=== PATIENT | female | born 1995 | race Caucasian/White ===

== ENCOUNTER 2025-04-24 18:34 | Emergency (ER) | payer OTHER ==
[2025-04-24 18:55] VITALS: BP 116/72; PULSE 104; RESP 18; TEMP 98.4; BMI 43.6
[2025-04-24 19:48] LABS: EPI CELLS >36 /uL (0-25.1); HYALINE CASTS 5 /uL (0-3.1); URINE APPEARANCE TURBID; URINE BACTERIA 489 /uL (0-1359); URINE BILIRUBIN NEGATIVE (NEGATIVE); URINE COLOR DK YELLOW; URINE GLUCOSE (UA) NEGATIVE (NEGATIVE); URINE KETONE 4+ (NEGATIVE); URINE LEUK ESTERASE 2+ (NEGATIVE); URINE NITRITE NEGATIVE (NEGATIVE); URINE PROTEIN 4+ (NEGATIVE); URINE RBC 8334 /uL (0-23.9); URINE UROBILINOGEN 1.0 mg/dL (0.2-1.0); URINE WBC 5661 /uL (0-25.8)
[2025-04-24] MEDS ORDERED: CEPHALEXIN MONOHYDRATE 500 MG CAPSULE (UD) ONE (20:06)
[2025-04-24] MEDS: CEPHALEXIN MONOHYDRATE 500 MG CAPSULE (UD) PO ONE (20:08)
== END 2025-04-24 20:23 | disposition home or self-care (01) ==
LOC: JER 18:34
DX: O23.42 Unspecified infection of urinary tract in pregnancy, second trimester (principal); O99.891 Other specified diseases and conditions complicating pregnancy; R30.0 Dysuria; R31.9 Hematuria, unspecified; Z3A.18 18 weeks gestation of pregnancy
CPT/HCPCS: 81003; 87086; 99283-25